=== PATIENT | female | born 1985 | race African-American/Black ===

== ENCOUNTER 2018-11-01 17:05 | Emergency (ER) | payer MEDICAID ==
[~2018-11-01] VITALS: Ht 167.6 cm; Wt 71.0 kg
[2018-11-01 17:13] VITALS: BP 108/68
== END 2018-11-01 21:00 | disposition left against medical advice (07) ==
LOC: ER 17:05
DX: R52 Pain, unspecified (principal); Z53.21 Procedure and treatment not carried out due to patient leaving prior to being seen by health care provider